=== PATIENT | female | born 1950 | race Caucasian/White ===

== ENCOUNTER → 2016-08-13 | Outpatient (CLI) | payer OTHER ==
[~2016-08-13] MED LIST: ASPI81TA21 PO; ATOR10TA82 PO; CALC-279 PO; CALCIUM CARBONATE 750 MG PO; CALCIUM CITRATE PO; DOCU1TAB6 PO; ESTR1CRE PV; LEVO75TA PO; OMEG10007 PO; OMEP20CA59 PO; OXYC-57 PO; [UNRECOGNIZED DRUG - OTHER] PO
--- NOTE | 2016-08-14 13:04 | MAMMOGRAPHY REPORT ---
BILATERAL DIGITAL SCREENING MAMMOGRAM WITH CAD: 08/13/2016 CLINICAL HISTORY: Routine screening. TECHNIQUE: Bilateral CC and MLO views were obtained. Current study was also evaluated with a Compute r Aided Detection (CAD) system. COMPARISON: Comparison is made to exams dated: 08/03/2015 mammogram, 07/28/2014 mammogram, 07/08/2013 m ammogram, 07/07/2012 mammogram - [facility], 05/29/2011 mammogram, and 04/26/2010 mammogram - [facility]. BREAST COMPOSITION: There are scattered areas of fibroglandular density in both breasts. FINDINGS: There is a vague asymmetry in the lateral, middle one third of the left breast, best seen on the CC view located 4.4 cm distal to the nipple. Unclear if this projects superiorly or inferiorl y based on the MLO view. Although this could represent normal fibroglandular tissue, additional spot compression tomosynthesis views and possibly ultrasound are recommended. No other suspicious mass, architectural distortion or cluster of microcalcifications is seen bilwilliama jackelyn. IMPRESSION: ACR BI-RADS CATEGORY 0: INCOMPLETE EVALUATION: NEED ADDITIONAL IMAGING EVALUATION The asymmetry in the lateral left breast needs additional evaluation. The patient will be called to schedule an appointment. Approximately 10% of breast cancers are not detected with mammography. A negative mammographic report should not delay biopsy if a clinically suggestive mass is present. Opal Waddell M.D. ay/:08/13/2016 15:49:55 Theatrical Dresser: Jessica BONE(R)(M), [facility] letter sent: Addl Imaging 0 BI-RADS Code: ACR BI-RADS Category 0: Incomplete Evaluation: Need Additional Imaging Evaluation
== END | disposition home or self-care (01) ==
LOC: C.MAMM 15:15
PROVIDERS: ATTEND Internal Medicine
DX: Z12.31 Encounter for screening mammogram for malignant neoplasm of breast (principal); N64.89 Other specified disorders of breast

== ENCOUNTER → 2016-08-22 | Outpatient (CLI) | payer OTHER ==
[~2016-08-22] MED LIST changes: -ATOR10TA82 PO; +ATOR10TA88 PO
--- NOTE | 2016-08-22 16:19 | MAMMOGRAPHY REPORT ---
UNILATERAL LEFT DIGITAL DIAGNOSTIC MAMMOGRAM TOMOSYNTHESIS AND TARGETED LEFT ULTRASOUND: 08/22/2016 CLINICAL HISTORY: 65-year-old woman called back from screening mammography for a vague asymmetry in t he slightly lateral middle one third of the left breast, only seen on the CC view. TECHNIQUE: Spot compression left CC and MLO to the digital and tomosynthesis images were obtained. COMPARISON: Comparison is made to exams dated: 08/13/2016 mammogram - [facility], mammogram, 07/28/2014 mammogram, 07/08/2013 mammogram, 07/07/2012 mammogram - [facility], and 05/29/2011 mammogram - [facility]. BREAST COMPOSITION: The tissue of the left breast is almost entirely fatty. FINDINGS: On the spot compression left CC view, there is effacement of the vague asymmetry in the sli ghtly lateral middle one third of the left breast. No corresponding mass or focal area of architectu ral distortion is seen on the tomosynthesis images. No abnormality is identified on the spot bart celina MLO views and corresponding tomosynthesis images. Targeted ultrasound was performed throughout the lateral left breast. Normal fibroglandular tissue i s seen without a discrete solid or cystic mass. IMPRESSION: ACR BI-RADS CATEGORY 2: BENIGN, TARGETED ULTRASOUND ACR BI-RADS CATEGORY 2: BENIGN There is effacement of the left lateral asymmetry, and no suspicious sonographic correlate identified . There is no mammographic or targeted sonographic evidence of malignancy. Return to annual mammogra m screening schedule is recommended. The patient has been verbally notified of the results. Approximately 10% of breast cancers are not detected with mammography. A negative mammographic report should not delay biopsy if a clinically suggestive mass is present. Opal Waddell M.D. ay/:08/22/2016 14:28:36 Office Machine Repair Shop Supervisor: Carin Figueroa, [facility] letter sent: Normal 1/2 BI-RADS Code: ACR BI-RADS Category 2: Benign Ultrasound BI-RADS: ACR BI-RADS Category 2: Benign
== END | disposition home or self-care (01) ==
LOC: C.MAMM 13:44
PROVIDERS: ATTEND Internal Medicine
DX: R92.2 Inconclusive mammogram (principal); R92.8 Other abnormal and inconclusive findings on diagnostic imaging of breast

== ENCOUNTER → 2016-09-06 | Outpatient (CLI) | payer OTHER ==
[2016-09-06 11:02] LABS: ALT/SGPT 22 U/L (12-78); BLOOD UREA NITROGEN 16 mg/dl (7-18); BUN/CREATININE RATIO 18.6 (10-20); CALCIUM 9.4 mg/dl (8.5-10.1); CARBON DIOXIDE 30 mmol/L (21-32); CHLORIDE 109 mmol/L (98-107); CHOLESTEROL 143 mg/dl (0-200); CREATININE 0.87 mg/dl (0.60-1.20); GLUCOSE 88 mg/dl (70-99); POTASSIUM 4.3 mmol/L (3.5-5.1); SODIUM 143 mmol/L (136-145); TRIGLYCERIDES 49 mg/dl (0-150); VERY LOW DENSITY LIPOPROT CALC 10 mg/dl
[2016-09-06 11:12] LABS: ALB/GLOB RATIO 1.1 (0.9-2); ALKALINE PHOSPHATASE 72 U/L (45-117); AST/SGOT 19 U/L (15-37); CHOLESTEROL/HDL RATIO 1.9; HDL CHOLESTEROL 74 mg/dl; LDL CHOLESTEROL CALCULATED 59 mg/dl
== END | disposition home or self-care (01) ==
LOC: C.LABBC 08:34
PROVIDERS: ATTEND Physician Assistant Medical
DX: E03.9 Hypothyroidism, unspecified (principal); I25.2 Old myocardial infarction; I25.10 Atherosclerotic heart disease of native coronary artery without angina pectoris

== ENCOUNTER 2016-10-29 12:28 | Emergency (ER) | payer OTHER ==
[~2016-10-29] VITALS: Ht 162.6 cm; Wt 76.1 kg
[~2016-10-29 12:28] MED LIST changes: -ATOR10TA88 PO; -CALC-279 PO; -DOCU1TAB6 PO; -OMEG10007 PO; -OXYC-57 PO
[2016-10-29 12:29] VITALS: Ht 162.6 cm; Wt 76.1 kg
[2016-10-29] MEDS ORDERED: ONDANSETRON INJ 2 MG/ML 2 ML VIAL IV STA (13:10)
[2016-10-29] MEDS ORDERED: MoRPHine SULFATE 4 MG/ML 1 ML CARP\\VIAL IV PRN (13:15)
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
[2016-10-29] MEDS ORDERED: ATOR10TA88 PO (14:13)
[2016-10-29] MEDS ORDERED: CALC-279 PO (14:13)
[2016-10-29] MEDS ORDERED: DOCU1TAB6 PO (14:13)
[2016-10-29] MEDS ORDERED: OMEG10007 PO (14:13)
[2016-10-29] MEDS ORDERED: HYDROmorphone INJ 1 MG/ML SYR IV ONE ×2 (14:45→17:00)
--- NOTE | 2016-10-29 14:45 | DIAGNOSTIC IMAGING REPORT ---
LEFT ANKLE MIN 3 VIEWS ROUTINE CLINICAL HISTORY: Left ankle pain status post trauma COMPARISON: None. DISCUSSION: There are 2 fractures of the medial malleolus and distal fibula. There is a probable fracture of the posterior malleolus. There is disruption of the ankle mortise with lateral subluxation of the talus with respect to the tibia. On the lateral view there is a displaced 6 mm fracture fragment projected over the anterior talus. IMPRESSION: Trimalleolar fracture subluxation. Electronically signed by: Silas Miller M.D. 10/29/2016 2:43 PM Dictated Date/Time: 10/29/2016 2:42 PM
[2016-10-29 14:47] VITALS: O2SAT 99
--- NOTE | 2016-10-29 14:47 | DIAGNOSTIC IMAGING REPORT ---
LEFT FOOT MIN 3 VIEWS ROUTINE CLINICAL HISTORY: L foot pain pain COMPARISON: None. DISCUSSION: The bones and joint spaces appear intact. There is no evidence of fracture, dislocation or bony disease. Old avulsion from the superior navicular. Fracture posterior malleolus. Probable fractures medial and lateral malleolus. Heel spur. The foot specifically shows no acute bony abnormality. IMPRESSION: 1. No specific abnormality of the foot. 2. Ankle fractures as discussed. The above report was generated using voice recognition software. It may contain grammatical, syntax or spelling errors. Electronically signed by: Charles Pereyra M.D. 10/29/2016 2:45 PM Dictated Date/Time: 10/29/2016 2:43 PM
[2016-10-29] MEDS ORDERED: MoRPHine SULFATE 2 MG/ML CARP ONE (15:31)
--- NOTE | 2016-10-29 16:33 | DIAGNOSTIC IMAGING REPORT ---
LEFT ANKLE 2 VIEWS CLINICAL HISTORY: LEFT ANKLE POST REDUCTION COMPARISON: Left ankle radiographs October 29, 2016 at 2:29 PM. FINDINGS: Fine detail is diminished by overlying cast. There is persistent medial ankle mortise widening which is slightly improved. A trimalleolar left ankle fracture is again noted. Fracture alignment has slightly improved since prior exam. A fracture fragment projecting superior to the talar neck likely arises from the distal left tibia. This is unchanged. IMPRESSION: Redemonstration of the trimalleolar ankle fracture with ankle mortise disruption. Slight improvement in alignment since prior exam. Electronically signed by: Bacilio Miller M.D. 10/29/2016 4:32 PM Dictated Date/Time: 10/29/2016 4:30 PM
[2016-10-29] MEDS ORDERED: OXYC-57 PO (16:48)
[2016-10-29 17:30] LABS: BASO % 0.3 %; BASO ABS # 0.02 K/uL (0-0.2); COMPLETE YES; EOS % 0.6 %; HEMATOCRIT 44.6 % (37-47); IG% 0.3 %; LYMPH % 21.8 %; LYMPH ABS # 1.55 K/uL (1.2-3.4); MEAN CELL VOLUME 94.1 fL (80-100); MEAN CORPUSCULAR HEMOGLOBIN 30.6 pg (25-34); MEAN CORPUSCULAR HGB CONC 32.5 g/dl (32-36); MONO % 5.9 %; NEUT % 71.1 %; PLATELET COUNT 236 K/uL (130-400); RED BLOOD COUNT 4.74 M/uL (4.2-5.4); WHITE BLOOD COUNT 7.12 K/uL (4.8-10.8)
[2016-10-29 17:38] LABS: BUN/CREATININE RATIO 18.8 (10-20); CALCIUM 8.9 mg/dl (8.5-10.1); CREATININE 0.78 mg/dl (0.60-1.20); POTASSIUM 3.9 mmol/L (3.5-5.1)
[2016-10-29 17:40] LABS: INR 0.9 (0.9-1.1)
[2016-10-29] MEDS ORDERED: ONDANSETRON 4MG OD TAB ONE (17:53)
[2016-10-29 18:01] VITALS: BP 117/65; PULSE 50; TEMP 36.7; O2SAT 99
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
== END 2016-10-29 18:00 | disposition home or self-care (01) ==
LOC: EDBD 12:28 → C.EDA 12:29
DX: S82.852A Displaced trimalleolar fracture of left lower leg, initial encounter for closed fracture (principal); V18.0XXA Pedal cycle driver injured in noncollision transport accident in nontraffic accident, initial encounter; Y92.89 Other specified places as the place of occurrence of the external cause; E03.9 Hypothyroidism, unspecified; Z87.891 Personal history of nicotine dependence; Z82.49 Family history of ischemic heart disease and other diseases of the circulatory system; Z79.82 Long term (current) use of aspirin; Z79.899 Other long term (current) drug therapy

== ENCOUNTER → 2016-10-30 | Outpatient (CLI) | payer OTHER ==
[~2016-10-30] MED LIST changes: +ATOR10TA88 PO; +CALC-279 PO; -CALCIUM CARBONATE 750 MG PO; -CALCIUM CITRATE PO; +DOCU1TAB6 PO; -ESTR1CRE PV; +OMEG10007 PO; -OMEP20CA59 PO; +OXYC-57 PO; -[UNRECOGNIZED DRUG - OTHER] PO
== END | disposition home or self-care (01) ==
LOC: C.RAD 13:48
DX: S82.892A Other fracture of left lower leg, initial encounter for closed fracture (principal); X58.XXXA Exposure to other specified factors, initial encounter

== ENCOUNTER → 2017-09-27 | Outpatient (CLI) | payer OTHER ==
[~2017-09-27] MED LIST changes: +ASPI-319 PO; -ASPI81TA21 PO; +ATOR10TA82 PO; -ATOR10TA88 PO; -OXYC-57 PO
[2017-09-27 10:39] LABS: BASO % 0.4 %; BASO ABS # 0.02 K/uL (0-0.2); EOS % 1.2 %; EOS ABS # 0.06 K/uL (0-0.5); HEMATOCRIT 42.4 % (37-47); HEMOGLOBIN 14.2 g/dL (12.0-16.0); IG# 0.01 K/uL (0.00-0.02); LYMPH % 40.4 %; LYMPH ABS # 2.07 K/uL (1.2-3.4); MEAN CELL VOLUME 93.4 fL (80-100); MEAN CORPUSCULAR HEMOGLOBIN 31.3 pg (25-34); MEAN CORPUSCULAR HGB CONC 33.5 g/dl (32-36); MEAN PLATELET VOLUME 9.9 fL (7.4-10.4); MONO % 7.2 %; MONO ABS # 0.37 K/uL (0.11-0.59); NEUT % 50.6 %; NEUT ABS # 2.59 K/uL (1.4-6.5); PLATELET COUNT 215 K/uL (130-400); RED CELL DISTRIBUTION WIDTH CV 13.8 % (11.5-14.5); RED CELL DISTRIBUTION WIDTH SD 47.3 fL (36.4-46.3); WHITE BLOOD COUNT 5.12 K/uL (4.8-10.8)
[2017-09-27 11:00] LABS: ALBUMIN 3.8 gm/dl (3.4-5.0); ALKALINE PHOSPHATASE 77 U/L (45-117); ALT/SGPT 24 U/L (12-78); AST/SGOT 20 U/L (15-37); BLOOD UREA NITROGEN 17 mg/dl (7-18); CALCIUM 9.1 mg/dl (8.5-10.1); CARBON DIOXIDE 28 mmol/L (21-32); CHOLESTEROL 136 mg/dl (0-200); CREATININE 0.83 mg/dl (0.60-1.20); GLUCOSE 83 mg/dl (70-99); LDL CHOLESTEROL CALCULATED 52 mg/dl; POTASSIUM 4.1 mmol/L (3.5-5.1); SODIUM 141 mmol/L (136-145); TOTAL PROTEIN 7.4 gm/dl (6.4-8.2)
== END | disposition home or self-care (01) ==
LOC: C.LAB1850 08:54
PROVIDERS: ATTEND Internal Medicine
DX: Z00.00 Encounter for general adult medical examination without abnormal findings (principal); E03.9 Hypothyroidism, unspecified; Z87.19 Personal history of other diseases of the digestive system; I25.2 Old myocardial infarction; I25.10 Atherosclerotic heart disease of native coronary artery without angina pectoris